=== PATIENT | male | born 1960 | race African-American/Black ===

== ENCOUNTER → 2017-03-24 | Outpatient (CLI) | payer MEDICARE, OTHER ==
[~2017-03-24] MED LIST: AMLODIPINE BESY10 MG PO; LORTAB 7.5-3251 EACH PO; PERCOCET 5/321 UDTAB PO; TRIAMTERENE-HC1 EAC1 PO; XARELTO10 MG PO
--- NOTE | ~2017-03-24 | EKG ---
PATIENT: FRANCI MALDONADO UNIT #: [id number] Ventricular Rate: 81 BPM Atrial Rate: 81 BPM P-R Interval: 154 ms QRS Duration: 84 ms Q-T Interval: 366 ms QTC Calculation(Bezet): 425 ms P [place]: 117 degrees Calculated R [place]: 17 degrees Calculated T [place]: 39 degrees Diagnosis Line: Normal sinus rhythm Diagnosis Line: Minimal voltage criteria for LVH, may be normal Diagnosis Line: variant Diagnosis Line: Early repolarization Diagnosis Line: Borderline ECG Diagnosis Line: No previous ECGs available Diagnosis Line: Confirmed by MISBAH MONROE MD ([id number]) on Diagnosis Line: 03/24/2017 3:21:27 PM INTERPRETING MD: FER MOTT
[2017-03-24 11:23] LABS: BILIRUBIN,TOTAL 0.5 mg/dL (0.2-2.0); BUN/CREATININE RATIO 6.66; CALCIUM SERUM 9.1 mg/dL (8.4-10.2); CREATININE SERUM 0.9 mg/dL (0.6-1.4); GLOM FILT RATE Estimated 108.7 mL/min (>60); POTASSIUM 4.2 mmol/L (3.5-5.1); PROTEIN TOTAL SERUM 7.6 g/dL (6.0-8.3)
== END | disposition home or self-care (01) ==
LOC: CAMB 09:52 → EDSTATUS 10:00 → CAMB 10:00
PROVIDERS: Orthopaedic Surgery
DX: Z01.818 Encounter for other preprocedural examination (principal); S82.201K Unspecified fracture of shaft of right tibia, subsequent encounter for closed fracture with nonunion; S82.401K Unspecified fracture of shaft of right fibula, subsequent encounter for closed fracture with nonunion; I51.7 Cardiomegaly; R94.31 Abnormal electrocardiogram [ECG] [EKG]
CPT/HCPCS: 36415; 80053; 93005

== ENCOUNTER 2017-04-07 13:26 | Inpatient (IN) | payer MEDICARE, OTHER ==
--- NOTE | ~2017-04-07 | CO ---
Unit #: [id number] #: [id number] Patient: FRANCI MALDONADO [id number] [address] [address] [id number] I MR#: [id number] NAME: FRANCI MALDONADO. ROOM: [facility] Age: 56 Sex: M Admission Date: 04/07/2017 : 1960 Attending Physician: Chevy Tejeda M.D. Primary Care Physician: Emma Sands M.D. Consultation Date: 04/08/2017 CONSULTATION REPORT REFERRING PHYSICIAN Dr. Maximiliano Tejeda REASON FOR CONSULT Alcohol abuse. HISTORY This pleasant 56-year-old male with hypertension, chronic right leg pain, was admitted to the orthopedic service yesterday for a right tib/fib surgery for right tib/fib malunion. The patient drinks 12 beers on a daily basis. We were asked to see for alcohol withdrawal. The patient apparently was sweaty and shaky earlier, and Ativan per [place] protocol was ordered. At this time the patient is more calm. Denies any symptoms except for some nausea and vomiting postop. Of note, his perioperative vital signs have been stable, and his estimated blood loss was 500 mL. PAST MEDICAL HISTORY 1. Alcohol abuse. The patient states that he drinks 12 beers on a daily basis. 2. Tobacco abuse. 3. Hypertension. 4. History of acute kidney injury which the patient states is related to penicillin. He states that he did require temporary dialysis. ALLERGIES Penicillin. HOME MEDICATIONS The patient states that he just takes Norvasc 10 mg daily and Lortab 7.5. Although Maxzide 37.5 mg is noted as a home medicine, the patient states that he does not take this medicine. FAMILY HISTORY Heart disease, hypertension and CVA. SOCIAL HISTORY The patient is living with a friend. He smokes one pack per day of tobacco, drinks 12 beers on a daily basis. Denies illicit drug use. REVIEW OF SYSTEMS Notable for tobacco abuse, alcohol abuse, hypertension, chronic right distal leg pain following injury last year. All other systems were reviewed and are otherwise negative. Unit #: [id number] #: [id number] Patient: FRANCI MALDONADO PHYSICAL EXAMINATION GENERAL APPEARANCE: Pleasant 56-year-old male, minimally confused at this point after receiving Phenergan. VITAL SIGNS: Temperature 98.9, pulse 96, O2 saturation 100%, blood pressure 137/87. HEENT: Eyes PERRLA. Extraocular muscles are intact. Pharynx is benign with poor dentition. NECK: Supple without adenopathy or thyromegaly. CHEST: Clear. CARDIAC: Normal S1 and S2 without murmur. ABDOMEN: Bowel sounds are present. No hepatosplenomegaly, tenderness or masses. EXTREMITIES: Splint noted distal right leg. Left leg without edema. Good pedal pulse. No ulceration. NEUROLOGIC EXAMINATION: The patient is minimally confused after receiving Phenergan. His cranial nerves are intact. He has equal strength throughout and is able to move all of the extremities. He is not tremulous at this time. DIAGNOSTIC STUDIES LABORATORY: 03/24/2017 - SMA-12 notable for an AST of 62, alkaline phos. 132. CARDIOVASCULAR: EKG on that day, according to the [employer], early repolarization, minimal voltage criteria for LVH. ASSESSMENT 1. Surgery for right tib/fib malunion: Estimated blood loss about 500 mL. Perioperative vital signs stable. 2. Alcohol abuse: Patient drinks a 12 pack of beer on a daily basis. Had some symptoms of withdrawal, initially now improved after Ativan per CIWA protocol. 3. Essential hypertension. PLANS 1. Continue Ativan per CIWA protocol and vitamins. Will discontinue other medications on the protocol such as Phenergan, Lomotil, etc. 2. Recheck labs in the morning. 3. P.r.n. Zofran. 4. Hold Maxzide. I am unsure if patient is actually taking this medicine. 5. Will follow with you. Thank you very much for this consult. ADDITIONAL JOB #: [id number] Dictated by... Gricelda Martinez M.D. AML/df TD: 04/09/2017 06:11 JOB #: [id number] Unit #: [id number] #: [id number] Patient: FRANCI MALDONADO CONSULTATION REPORT Page 1 of 1 X Gricelda Martinez MD CONSULTATION REPORT
--- NOTE | ~2017-04-07 | OR ---
Unit #: [id number] #: [id number] Patient: FRANCI MALDONADO [id number] [address] [place], [place] [address] [id number] I MR#: [id number] NAME: FRANCI MALDONADO. ROOM: [facility] Date of Procedure: 04/07/2017 Admission Date: 04/07/2017 Surgeon: Chevy Tejeda M.D. : 1960 Attending Physician: Chevy Tejeda M.D. Primary Care Physician: Emma Sands M.D. OPERATIVE REPORT PREOPERATIVE DIAGNOSIS Right distal tibial and fibular nonunions. POSTOPERATIVE DIAGNOSIS Right tibial and fibular malunions with healing and significant recurvatum. PROCEDURES PERFORMED 1. Right distal tibial shaft and fibular shaft realignment osteotomies (84799). 2. Right proximal tibial bone graft (82197). ASSISTANTS MD Mitra; MD Clarisa; and STEFFANY Villa. ANESTHESIA General and popliteal saphenous block. INDICATIONS FOR SURGERY The patient is a 56-year-old male, who jumped off a tractor about a year ago sustaining distal tibial and fibular fractures. He was initially treated in an external fixator and went on to develop a nonunion with marked displacement of both fractures. The patient is a smoker, which has most likely contributed to his nonunion. The patient failed to respond to bracing and he is therefore to undergo realignment osteotomies. DESCRIPTION OF PROCEDURE The patient was taken to the operating room following the right popliteal saphenous block. He was placed in supine position. General anesthetic was induced. The right leg was identified as the correct operative location during the time-out procedure. The IV antibiotic protocol was followed. The right leg was then prepped and draped in usual sterile fashion. The leg was exsanguinated and the thigh tourniquet inflated to 300 mmHg. A lateral longitudinal incision measuring 8 cm was made over the fibular shaft. Subcutaneous tissue was divided. The fibula was exposed with subperiosteal dissection and the fibula was actually found to be healed in about 20 degrees of recurvatum. An anteromedial longitudinal incision was then made over the distal tibia measuring about 10 cm. Subcutaneous tissue was divided. There was marked scarring around the anterior tibial tendon. Dissection proceeded medial to the anterior tibial tendon and the distal tibial shaft was exposed with subperiosteal dissection. A discrete nonunion was not identified, but Unit #: [id number] #: [id number] Patient: FRANCI MALDONADO there was marked recurvatum of the tibia. Under C-arm fluoroscopic control, a 0.062-inch diameter smooth K-wire was drilled from anterior proximal to distal posterior in line with the fracture malunion/nonunion. An oscillating saw was then used to cut next to the pin, which acted as a guide for the saw. The osteotomy was completed with a power osteotome posteriorly under C-arm fluoroscopic control. There was significant difficulty mobilizing the distal fragment of the tibia, therefore an additional posteromedial incision was made over the tibia measuring about 8 cm. Dissection proceeded anterior to the posterior tibial tendon, neurovascular bundle, and other musculature and the posterior aspect of the tibia was exposed with subperiosteal dissection. This then allowed removal of some bone from the posterior tibia, which was blocking reduction. We were then able to achieve a near-anatomic reduction with a large bone-holding clamp. The anterior opening osteotomy of the distal tibia was bone grafted with autogenous graft taken from the proximal tibia. A 5 cm curvilinear incision was made over the proximal lateral tibia. Subcutaneous tissue was divided. The extensor fascia was opened. The lateral tibial cortex was exposed subperiosteally and a 1 x 2 cm cortical window was made with the power osteotome. A large amount of cancellous bone graft was harvested with the curved curette. Two collagen sponges soaked in Infuse bone morphogenic protein were then packed into the osteotomy site of the tibia. The tibial osteotomy was then packed with autogenous bone graft, which was taken from the proximal tibia. Additional local graft from the osteotomy site that had been removed to allow reduction was also packed into this osteotomy. A DePuy distal tibial anterior [place] plate was then aligned with the tibia anteriorly and fixated with multiple 3.5 mm diameter cortical screws proximally, and two 4.0 mm diameter cannulated screws placed distally. A 4.0 cannulated cancellous lag screw was then placed through the plate across the osteotomy site to achieve interfragmentary compression. The fibula was then grafted with a bone graft taken from the proximal tibia. A 7-hole one-third tubular plate from DePuy was then applied laterally and fixated with multiple 3.5 mm diameter cortical screws. Excellent fixation was achieved. Intraoperative C-arm fluoroscopy documented satisfactory near anatomic reduction. The proximal tibial donor site was irrigated and then packed with allograft cancellous bone chips and the cortical window was replaced. The deep tissues were closed with 2-0 Vicryl, subcutaneous tissue was closed with 3-0 Vicryl, and the skin was closed with interrupted 3-0 nylon horizontal mattress sutures. Xeroform gauze, dressing, sponges, Webril, and a posterior fiberglass splint were applied. The patient was then transported to the recovery room in stable condition. ESTIMATED BLOOD LOSS 200 mL. COMPLICATIONS None. SPECIMENS None. TOURNIQUET TIME Unit #: [id number] #: [id number] Patient: FRANCI MALDONADO Approximately 2 hours. Dictated by.Dominguez Robles/jose TD: 04/08/2017 16:23 JOB #: [id number] OPERATIVE REPORT Page 1 of 1 X Christina Tejeda MD X PROCEDURE OPERATIVE NOTE
--- NOTE | ~2017-04-07 | DS ---
Unit #: [id number] #: [id number] Patient: FRANCI MALDONADO [id number] [address] [place], [place] [address] [id number] I MR#: [id number] NAME: FRANCI MALDONADO. ROOM: [facility] Age: 56 Sex: M Admission Date: 04/07/2017 : 1960 Discharge Date: 04/09/2017 Attending Physician: Chevy Tejeda M.D. Primary Care Physician: Emma Sands M.D. DISCHARGE SUMMARY CHIEF COMPLAINT Right leg pain. HISTORY OF PRESENT ILLNESS The patient is a 56-year-old male, alcoholic, smoker, who sustained distal tibial and fibular fractures a year ago when he jumped off a tractor. He was initially treated with external fixation. He went on to develop a significant recurvatum deformity of the distal tibia and fibula with suspected nonunion. He was referred to [facility] for further evaluation and treatment. We are, therefore, going to proceed with internal fixation and reduction of both fractures using plates. HOSPITAL COURSE The patient was taken to the operating room on the date of admission, where he underwent osteotomies through old malunions and anterior opening wedge osteotomy of the distal tibia and posterior closing wedge osteotomy of the distal fibula. We used proximal tibial graft and infused bone morphogenic protein. He had a stable postoperative course. Precautions were taken for alcohol withdrawal. Pain was controlled with Percocet and IV morphine. Dressing was changed on the second postoperative day. He was seen by physical therapy on a daily basis and instructed on how to remain nonweightbearing on the affected side. DVT prophylaxis was achieved with Xarelto. He was discharged in stable condition on the second postoperative day. FINAL DIAGNOSES 1. Right distal tibial and fibular malunions. OPERATIONS PERFORMED Right distal tibial and fibular osteotomy on 04/07/2017. DISPOSITION The patient is discharged home. DISCHARGE INSTRUCTIONS He will remain strictly nonweightbearing for three months. He will keep the dressing clean, dry and intact. Will continue ice and elevation. DISCHARGE MEDICATIONS 1. Home medications. 2. Percocet 5/325 mg 1-2 p.o. q.4-6 h. p.r.n. pain. 3. Xarelto 10 mg p.o. daily for a total of 2 weeks postoperatively. Unit #: [id number] #: [id number] Patient: FRANCI MALDONADO FOLLOWUP Follow up in my office in 10 days for dressing change, possible suture removal and application of a cast. Dictated by..Brenda Tejeda M.D. RTYazmin/gz TD: 04/09/2017 07:59 JOB #: [id number] CC: Chevy Tejeda M.D. DISCHARGE SUMMARY Page 1 of 1 X Christina Tejeda MD X DISCHARGE SUMMARY
--- NOTE | ~2017-04-07 | HP ---
Unit #: [id number] #: [id number] Patient: FRANCI MALDONADO [id number] [address] [address] [id number] O MR#: [id number] NAME: FRANCI MALDONADO. ROOM: Age: Sex: M Admission Date: 04/07/2017 : 1960 Attending Physician: Chevy Tejeda M.D. Primary Care Physician: Emma Sands M.D. HISTORY AND PHYSICAL DATE OF ANTICIPATED ADMISSION/PROCEDURE April 07, 2017 CHIEF COMPLAINT Right leg pain. HISTORY OF PRESENT ILLNESS The patient is a 56-year-old male who sustained right distal tibial and fibular fractures one year ago when he jumped off a tractor. He subsequently went on to develop a distal tibial nonunion with 25 degrees of recurvatum of the distal tibia. The patient is therefore admitted for open reduction and internal fixation of this unstable nonunion. Patient was advised that stopping smoking will be johnson to his recovery from this injury. PAST MEDICAL HISTORY 1. Tobacco abuse. 2. Hypertension. 3. Hypercholesterolemia. PAST SURGICAL HISTORY 1. Right kidney removed. 2. Carotid endarterectomy. HOME MEDICATIONS 1. Amlodipine. 2. Triamterene and hydrochlorothiazide. ALLERGIES Penicillin. SOCIAL HISTORY The patient drinks six alcoholic drinks a week. He smokes one pack per day. He denies illicit drug use. FAMILY HISTORY Heart disease, hypertension, and stroke. REVIEW OF SYSTEMS Otherwise unremarkable except as noted in History of Present Illness. PHYSICAL EXAMINATION VITAL SIGNS: Height 5 feet 10, weight 157 pounds. BMI is 22.5. GENERAL: This is a thin male in no acute distress. Unit #: [id number] #: [id number] Patient: FRANCI MALDONADO HEENT: Pharynx is clear. NECK: Supple without masses. HEART: Regular sinus rhythm without murmurs or gallops. LUNGS: Clear. ABDOMEN: Soft and nontender without masses or organomegaly. EXTREMITIES: Evaluation of the right foot shows a normal arch. The hindfoot is neutral. Right ankle dorsiflexion is present to zero degrees and plantar flexion 20 degrees. Subtalar motion is limited. On weightbearing, the patient has 25 degrees of recurvatum of the distal tibia. Dorsalis pedis and posterior tibial pulses are present. Sensation is normal. Motor exam is intact. DIAGNOSTIC STUDIES IMAGING: Standing x-rays of the right ankle show the ankle joint to be intact. There is anterior translation of the distal tibia 2 cm with 25 degrees of recurvatum of the distal tibia and fibula. There is no coronal malalignment seen on AP views. There is some subperiosteal reaction around the tibia and fibula. 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 PLAN The patient will undergo right distal tibial and fibular nonunion repair using an anterior plate and lateral fibular plate. We will use proximal tibial bone graft, infused bone morphogenic protein, and interfragmentary compression if possible. This procedure was described along with the risks of bleeding, infection, nerve damage, need for further surgery in the future, nonunion, malunion, prolonged recovery time, wound healing problems, deep venous thrombosis, pulmonary embolism, and anesthetic complications. Again, the importance of not smoking postoperatively was reiterated to the patient. Dictated by Dominguez Kovacs/angel TD: 04/06/2017 18:43 JOB #: [id number] HISTORY AND PHYSICAL Page 1 of 1 X Christina Tejeda MD X HISTORY AND PHYSICAL
[~2017-04-07 13:26] MED LIST changes: -AMLODIPINE BESY10 MG PO; -PERCOCET 5/321 UDTAB PO; -TRIAMTERENE-HC1 EAC1 PO; -XARELTO10 MG PO
[2017-04-08 04:07] LABS: BASOPHIL% 0.6 % (0-2.5); EOSINOPHIL% 0.4 % (0.0-7.0); HEMATOCRIT 31.7 % (38.0-50.0); HEMOGLOBIN 10.4 gm/dL (13.0-16.0); LYMPHOCYTE# 0.6 X10e3 (1.0-3.5); LYMPHOCYTE% 9.1 % (17.0-45.0); MEAN CELL VOLUME 93.9 FL (83-96); MEAN CORPUSCULAR HEMOGLOBIN 30.8 PG (28-34); MEAN CORPUSCULAR HGB CONC 32.8 g/dL (30-36); MEAN PLATELET VOLUME 8.5 FL (6.5-11.5); MONOCYTE# 0.7 X10e3 (0-1.0); MONOCYTE% 9.8 % (3.0-12.0); NEUTROPHIL# 5.5 X10e3 (1.5-7.1); NEUTROPHIL% 80.1 % (40-75); PLATELET COUNT 134 X10e3 (140-420); RED BLOOD COUNT 3.37 X10e (3.90-5.60); RED CELL DISTRIBUTION WIDTH 15.4 % (11.0-15.5); WHITE BLOOD COUNT 6.8 X10e3 (4.0-10.5)
[2017-04-08 04:11] LABS: DIFF IND NO
[2017-04-08 04:29] LABS: BUN/CREATININE RATIO 9.16; CALCIUM SERUM 8.3 mg/dL (8.4-10.2); CREATININE SERUM 1.2 mg/dL (0.6-1.4); GLOM FILT RATE Estimated 76.8 mL/min (>60); POTASSIUM 3.8 mmol/L (3.5-5.1)
[2017-04-09 02:19] LABS: BASOPHIL% 0.2 % (0-2.5); EOSINOPHIL# 0.1 X10e3 (0-0.7); EOSINOPHIL% 0.6 % (0.0-7.0); HEMATOCRIT 25.1 % (38.0-50.0); LYMPHOCYTE# 0.6 X10e3 (1.0-3.5); LYMPHOCYTE% 5.9 % (17.0-45.0); MEAN CELL VOLUME 94.2 FL (83-96); MEAN CORPUSCULAR HEMOGLOBIN 30.6 PG (28-34); MEAN CORPUSCULAR HGB CONC 32.5 g/dL (30-36); MEAN PLATELET VOLUME 7.9 FL (6.5-11.5); MONOCYTE# 1.6 X10e3 (0-1.0); MONOCYTE% 15.6 % (3.0-12.0); NEUTROPHIL# 7.9 X10e3 (1.5-7.1); NEUTROPHIL% 77.7 % (40-75); PLATELET COUNT 104 X10e3 (140-420); RED BLOOD COUNT 2.67 X10e (3.90-5.60); RED CELL DISTRIBUTION WIDTH 14.9 % (11.0-15.5); WHITE BLOOD COUNT 10.1 X10e3 (4.0-10.5)
[2017-04-09 02:31] LABS: DIFF IND NO; HEMOGLOBIN 8.2 gm/dL (13.0-16.0)
[2017-04-09 03:04] LABS: BUN/CREATININE RATIO 9.09; CALCIUM SERUM 8.1 mg/dL (8.4-10.2); CREATININE SERUM 1.1 mg/dL (0.6-1.4); GLOM FILT RATE Estimated 85.3 mL/min (>60); MAGNESIUM 1.6 mg/dL (1.6-3.0); PHOSPHOROUS 3.7 mg/dL (2.5-4.6)
[2017-04-09 12:51] LABS: HEMATOCRIT 24.9 % (38.0-50.0); HEMOGLOBIN 8.2 gm/dL (13.0-16.0)
[2017-04-09] MEDS ORDERED: XARELTO10 MG PO (14:43)
[2017-06-23] MEDS ORDERED: AMLODIPINE BESY10 MG PO (10:31)
[2017-06-23] MEDS ORDERED: TRIAMTERENE-HC1 EAC1 PO (10:31)
[2017-06-23] MEDS ORDERED: PERCOCET 5/321 UDTAB PO (14:44)
== END 2017-04-09 17:25 | disposition home or self-care (01) | DRG 494 ==
LOC: CSUR 13:26 → C4C 16:00 → CPACUOF 16:00 → CSUR 16:00 → CPACUOF 20:40 → C4C 23:21 → CPACUOF 23:21 → C4C 04-09 17:25
PROVIDERS: Internal Medicine; Nurse Practitioner; Orthopaedic Surgery
PROC: 0QR Lower Bones, Replacement (ICD-10-PCS; 2017-04-07)
PROC: 0QBG0ZZ Excision of Right Tibia, Open Approach (ICD-10-PCS; 2017-04-07)
PROC: 0QSG04Z Reposition Right Tibia with Internal Fixation Device, Open Approach (ICD-10-PCS; principal; 2017-04-07 16:30)
DX: S82.831A Other fracture of upper and lower end of right fibula, initial encounter for closed fracture (principal); D69.6 Thrombocytopenia, unspecified; S82.201A Unspecified fracture of shaft of right tibia, initial encounter for closed fracture; F17.210 Nicotine dependence, cigarettes, uncomplicated; I10 Essential (primary) hypertension; E78.00 Pure hypercholesterolemia, unspecified; Z88.0 Allergy status to penicillin; D64.9 Anemia, unspecified; R73.9 Hyperglycemia, unspecified; F10.10 Alcohol abuse, uncomplicated; R00.0 Tachycardia, unspecified; E83.42 Hypomagnesemia; L29.9 Pruritus, unspecified; Z71.6 Tobacco abuse counseling
CPT/HCPCS: 80048; 83735; 84100; 85014; 85018; 85025; 97116; 97162; 97530; C1713; G8978-GP; G8979-GP; G8980-GP; J1170; J2250; J2270; J2550; J2795; J3010; J3370; J3411; J3475; J7042

== ENCOUNTER 2017-05-07 10:57 | Inpatient (IN) | payer MEDICARE, OTHER ==
[~2017-05-07] VITALS: Ht 175.3 cm; Wt 65.6 kg
--- NOTE | ~2017-05-07 | CO ---
Unit #: [id number] #: [id number] Patient: FRANCI MALDONADO [id number] [address] [address] [id number] I MR#: [id number] NAME: FRANCI MALDONADO. ROOM: 467 Age: 56 Sex: M Admission Date: 05/07/2017 : 1960 Attending Physician: Chevy Tejeda M.D. Requesting Physician: Chevy Tejeda M.D. Consultation Date: 05/07/2017 CONSULTATION REPORT REASON FOR CONSULT Medical management and alcohol abuse. HISTORY OF PRESENT ILLNESS This pleasant 56-year-old male with hypertension was admitted to the orthopedic service today for a right distal wound dehiscence. The patient was previously admitted April 07, 2017, for right distal tibial malunion requiring surgery. Since his last admission, he has developed dehiscence of the wound. Today, he underwent I and D of the wound dehiscence with wound V.A.C. placement. Antibiotics are ordered, and a consult was also placed to Infectious Disease. The patient states that he drinks six to eight 12-ounce beers on a daily basis; last drink was yesterday morning. He is feeling perhaps very mildly tremulous. During his last hospitalization, he was placed on Ativan per CIWA protocol but did not have any complications in terms of his alcohol withdrawal during that hospitalization. With today's surgery, his perioperative vital signs were stable, and his estimated blood loss was 20 mL. PAST MEDICAL HISTORY 1. Alcohol abuse, six to eight 12-ounce beers on a daily basis. 2. Essential hypertension. 3. History of acute kidney injury which the patient states was related to penicillin in the past requiring temporary dialysis. 4. Partial right nephrectomy with benign findings. 5. Right tibia-fibula fracture initially treated with external fixation. Patient was admitted April 07, 2017, for right distal tibial and fibular nonunions requiring right distal tibial shaft and fibular shaft realignment ostomies with right proximal tibial bone graft. ALLERGIES Penicillin. HOME MEDICATIONS 1. Maxzide 37.5/25 mg daily. 2. Norvasc 10 mg q.a.m. 3. Xarelto 10 mg daily. 4. Percocet 6/325 mg 1-2 tablets q.4-6 hours as needed. FAMILY HISTORY Heart disease, hypertension, and CVA. SOCIAL HISTORY Unit #: [id number] #: [id number] Patient: FRANCI MALDONADO The patient lives with a friend. He smokes between one-half to one pack per day of tobacco. He drinks six to eight 12-ounce beers on a daily basis and denies illicit drug use. REVIEW OF SYSTEMS Notable for right leg pain, alcohol abuse, tobacco abuse, hypertension, and above-mentioned surgeries. All other systems were reviewed and are otherwise negative. PHYSICAL EXAMINATION GENERAL: A pleasant, thin, 56-year-old male currently in no acute distress. VITAL SIGNS: Blood pressure today was as high as 170/86, heart rate 67, temperature 97.9, and O2 saturation 100%. HEENT: Eyes PERRLA. Extraocular muscles are intact. Pharynx is benign with poor dentition. NECK: Supple without adenopathy or thyromegaly. CHEST: A few crackles at the bases. CARDIAC: Normal S1 and S2 without definite murmur. ABDOMEN: Bowel sounds are present. No hepatosplenomegaly, tenderness, or masses. EXTREMITIES: Patient has an Srinivasan wrap right distal lower extremity with wound V.A.C. attached. Left leg with somewhat diminished pedal pulses. No edema. NEUROLOGIC: Patient is awake, alert, and oriented. Cranial nerves are intact. He has equal strength throughout. He is minimally tremulous. DIAGNOSTIC STUDIES LABORATORY TODAY: Hematocrit 34.1 with normal white count and platelet count. Sedimentation rate 95. Coags normal. SMA-7 with sodium 133 and CO2 of 19. C-reactive protein normal. ASSESSMENT 1. Incision and debridement of a right postoperative distal right leg wound dehiscence. The patient now has a wound V.A.C. in place. Plans are for antibiotics and Infectious Disease consultation. 2. Alcohol abuse. The patient states that he drinks six to eight 12-ounce beers on a daily basis. 3. Essential hypertension. 4. Tobacco abuse. PLANS 1. Low-dose Librium. Ativan per CIWA protocol and will give vitamins. 2. Recheck labs in the morning. 3. Hold Maxzide if blood pressure starts to run on the low side. Thank you very much for this consult. Will follow with you. Dictated by... Gricelda Martinez M.D. AML/am TD: 05/07/2017 22:02 JOB #: [id number] Unit #: [id number] #: [id number] Patient: FRANCI MALDONADO CONSULTATION REPORT Page 1 of 1 X Gricelda Martinez MD CONSULTATION REPORT
--- NOTE | ~2017-05-07 | DS ---
Unit #: [id number] #: [id number] Patient: FRANCI MALDONADO [id number] [address] [address] [id number] I MR#: [id number] NAME: FRANCI MALDONADO ROOM: 46 Age: 56 Sex: M Admission Date: 05/07/2017 : 1960 Discharge Date: 05/12/2017 Attending Physician: Chevy Tejeda M.D. Referring Physician: Chevy Tejeda M.D. Primary Care Physician: Generic Doctor Not In System DISCHARGE SUMMARY CHIEF COMPLAINT Right leg infection. HISTORY OF PRESENT ILLNESS The patient is a 56-year-old male who underwent right tibial shaft and fibular osteotomies on April 07, 2015 for a distal tibial malunion. He now presents with dehiscence of the anterior and medial wounds. He denies fevers or chills. He is admitted for wound debridement, IV antibiotics and placement of a wound VAC. HOSPITAL COURSE The patient was taken to the operating room on the date of admission where he underwent debridement of his right leg wound with placement of a wound VAC. Aerobic and anaerobic cultures were taken at the time of surgery and these ultimately grew Klebsiella oxytoca and Proteus mirabilis. He was placed on IV antibiotics and was seen by the infectious disease service. Eventually the antibiotics which began with vancomycin were switched to aztreonam for treatment of his cultured bacteria. He had a stable postoperative course. His wound was checked on 05/11/2017 and was found to be much improved. His medial wound was almost granulated in completely and the anterior wound had granulated in dramatically but he still had exposed hardware. After consultation with the infectious disease physician, Dr. Sams, we decided to keep him on outpatient antibiotics for a total of four additional weeks with plan to change his wound VAC every three days. He was ready for discharge on the fourth postop day. FINAL DIAGNOSES 1. Right leg postoperative wound dehiscence. 2. Five weeks status post right distal tibial and fibular osteotomies. DISPOSITION AND RECOMMENDATIONS 1. The patient is discharged to rehab. He will continue nonweightbearing on his right leg for a total of six more weeks. He will continue elevation of the leg. 2. His right leg wound VAC should be changed and applied to both his lateral and medial wounds every three days. DISCHARGE MEDICATIONS Are as follows: 1. Amlodipine 10 mg p.o. q.a.m. 2. Aspirin 325 mg p.o. b.i.d. 3. Percocet 5/325 one or two p.o. q.6 h. p.r.n. pain. 4. Triamterene and hydrochlorothiazide 37.5/25 mg one cap p.o. q.a.m. Unit #: [id number] #: [id number] Patient: FRANCI MALDONADO 5. Aztreonam 2 g IV through a PICC line q.8 h. 6. Feosol one tab p.o. daily. FOLLOWUP Follow up in the office of Dr. Tejeda in approximately 7 to 10 days. Call [phone] to make the appointment. At that time will check his wound and make a decision regarding continuation of wound VAC. Dictated byDominguez Marino/agusto TD: 05/12/2017 16:39 JOB #: [id number] DISCHARGE SUMMARY Page 1 of 1 X hCristina Tejeda MD X DISCHARGE SUMMARY
--- NOTE | ~2017-05-07 | XA166 ---
[facility] A Service of [facility] RADIOLOGY TEXT RESULTS PATIENT: FRANCI MALDONADO LOCATION: [facility] 467-01 : 56 UNIT #: [id number] AGE: [address]: Christina Tejeda MD SEX: M ORDER DR: [id number] [facility] [place], [place] [address] [id number] I MR#: [id number] Acc #: [id number] NAME: FRANCI MALDONADO : 1960 SEX: M STUDY DATE/TIME: 05/11/2017 11:00 UNIT: [facility] ROOM: [facility] STUDY DESCRIPTION: XA PICC Line Placement WO Port Attending Physician: Chevy Tejeda M.D. Referring Physician: Chevy Tejeda M.D. Ordering Physician: Chevy Tejeda M.D. Primary Care Physician: Janel Doctor Not In System MEDICAL IMAGING REPORT This report is preliminary unless electronic signature is present INDICATION 56-year-old male who needs IV access for antibiotics. PRE-PROCEDURE The procedure was explained to the patient and/or patient product sales representative including risks, benefits, potential complications and potential for alternative forms of treatment. Informed consent was obtained, and prior to initiating the procedure a formal timeout procedure was performed. PROCEDURE Using full standard sterile barrier technique, including caps, gowns, gloves, masks, as well as sterile skin preparation and standard sterile draping, the right arm was prepped and draped in the usual fashion, and real-time sterile ultrasound guidance was used to localize an arm vein and to confirm vessel patency. A hard copy ultrasound image was recorded. After local anesthesia with 1% Xylocaine, the vein was punctured using real-time sterile ultrasound guidance, and an 0.018 guidewire was advanced into the superior vena cava, using fluoroscopic guidance. A 4 [place] 41.0 cm single-lumen PICC was then measured and deployed with the tip positioned in the superior vena cava. The position of the line was documented with a radiographic image. The line was secured in place with an adhesive dressing and an antibiotic patch was applied. Total fluoro time was 0.2 minutes. The reference air kerma is 3 mGy. IMPRESSION Successful right arm PICC line placement. Dictated by... Sher Drake M.D. THIS IS AN ELECTRONICALLY VERIFIED REPORT Sher Drake M.D. at 05/13/2017 5:01 PM [facility] A Service of [facility] RADIOLOGY TEXT RESULTS PATIENT: FRANCI MALDONADO LOCATION: [facility] 467-01 : 56 UNIT #: [id number] AGE: [address]: Christina Tejeda MD SEX: M ORDER DR: Osbaldo TD: 05/12/2017 10:57 JOB #: [id number] MEDICAL IMAGING REPORT Page 1 of 1 COPY
--- NOTE | ~2017-05-07 | CO ---
Unit #: [id number] #: [id number] Patient: FRANCI MALDONADO [id number] [address] [address] [id number] I MR#: [id number] NAME: FRANCI MALDONADO. ROOM: 46 Age: 56 Sex: M Admission Date: 05/07/2017 : 1960 Attending Physician: Chevy Tejeda M.D. Primary Care Physician: Janel Doctor Not In System Consultation Date: 05/08/2017 CONSULTATION REPORT The patient was admitted to Dr. Tejeda. REASON FOR CONSULTATION Antibiotic management. HISTORY OF PRESENT ILLNESS This is a 56-year-old male who has a history of recent right tibial shaft, fibular osteotomies secondary to malunion approximately four weeks ago. Patient went for his followup visit and was found to have dehiscence of wound, and he was admitted to the hospital. Patient was taken to the operating room and a wound VAC was placed after it was debrided and cleaned out. The patient's OR cultures are showing Gram stain gram-positive cocci in pairs and ID was asked to evaluate. The patient is currently on vancomycin. The patient does have a history of alcohol abuse and also penicillin allergy. PAST MEDICAL HISTORY 1. Alcohol abuse, six to eight beers on a daily basis. 2. Hypertension. 3. Acute kidney injury, which he reports is related to penicillin and caused dialysis. However, he is not currently on dialysis. 4. Partial right nephrectomy. 5. Right tibia/fibula fracture, treated with external fixation, admitted now nonunion status post repair four weeks ago. ALLERGIES Penicillin causing kidney injury. MEDICATIONS The patient is currently on vancomycin. For other medications, please refer to patient's MAR. SOCIAL HISTORY The patient has positive tobacco, positive alcohol but no IV drug use. REVIEW OF SYSTEMS Patient denies any fever or chills, shortness of breath, nausea, vomiting, diarrhea, chest pain. He does report pain in his right lower extremity. PHYSICAL EXAMINATION VITAL SIGNS: Temperature is 97.6, pulse 77, blood pressure 161/96, and respiratory rate 18. GENERAL: This is a no apparent distress male who is resting in the bed comfortably. Unit #: [id number] #: [id number] Patient: MALDONADO,FRANCI T HEENT: His pupils are equal. NECK: His neck is supple. CARDIOVASCULAR: S1, S2. Regular rate and rhythm. PULMONARY: Clear to auscultation bilaterally with no wheezes or rhonchi noted. ABDOMEN: Positive bowel sounds. Soft, nontender. EXTREMITIES: Right lower extremity is in a wound VAC. He is able to move his toes up and down. DIAGNOSTIC STUDIES LABORATORY: BUN 12, creatinine 0.9, sodium 128, potassium 4.2, chloride 99, CO2 of 25. Bilirubin not checked this admission. CRP is 0.7. White blood cell count of 6.9, hemoglobin 8.8, hematocrit 26.9, platelets 303,000. Sed rate 95. MICROBIOLOGY: Microbiology data shows Gram stain gram-positive cocci and now is also showing gram-negative rods x2. IMAGING: There is no diagnostic imaging at this time. IMPRESSION This is a 56-year-old male with history of fracture and internal fixation and recent right tibial shaft/fibular osteotomies secondary to malunion four weeks ago. Patient now with dehiscence of wound. Patient is not diabetic and at this time appears to be showing some polymicrobial infection; however, ID of the gram-negative rods have not been identified. At this time, would recommend to follow up on the operating room report as well as operating room cultures. With patient's history of penicillin allergy more so causing some renal insufficiency, will give aztreonam until more is known. Will also continue vancomycin. Once the extent of the infection is known as the patient does report he does have hardware in place, it will be determined the length of therapy. Thank you for allowing us to participate in the care of this patient. Further recommendations to follow pending patient's clinical course. Dictated by... Heather Mueller A.P.R.N. for Dominguez Liu/clarissa TD: 05/08/2017 09:31 JOB #: [id number] CONSULTATION REPORT Page 1 of 1 X X CONSULTATION REPORT
--- NOTE | ~2017-05-07 | OR ---
Unit #: [id number] #: [id number] Patient: FRANCI MALDONADO [id number] [place], [place] [address] [id number] I MR#: [id number] NAME: FRANCI MALDONADO. ROOM: 467 Date of Procedure: 05/07/2017 Admission Date: 05/07/2017 Surgeon: Chevy Tejeda M.D. : 1960 Attending Physician: Chevy Tejeda M.D. Referring Physician: Chevy Tejeda M.D. OPERATIVE REPORT PREOPERATIVE DIAGNOSES Right leg postoperative wound infection and dehiscence. POSTOPERATIVE DIAGNOSES Right leg postoperative wound infection and dehiscence. PROCEDURE PERFORMED 1. Right leg wound postoperative wound dehiscence debridement and irrigation (70320). 2. Application wound vacuum assisted closure device (wound VAC) for 90 cm2 wound (73533). PRECISION MILLWRIGHT Dell Maya Vessell. ANESTHESIA General. 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 The patient is a smoker and has experienced now a wound dehiscence both of his anterior wound and his medial wound. He is therefore, to undergo debridement with application of wound VAC. DESCRIPTION OF PROCEDURE The patient was taken to the operating room and placed in a supine position and general anesthetic was induced. The right leg was identified as the correct operative extremity during the time-out procedure. The IV antibiotic protocol was not followed, because we want to obtain cultures before institution of IV antibiotics. The right leg was then prepped and draped in the usual sterile fashion. A tourniquet was not utilized. The wound edges were sharply debrided removing all necrotic appearing tissue. There was exposed anterior tibial tendon in the wound and this was sharply debrided down to viable appearing tissue. There was a small area of the plate being exposed. A rongeur was used to remove all fibrinous and infected and necrotic appearing material. The anterior wound measured 8 x 9 cm. There was an additional medial wound measuring 3 x 6 cm and this was likewise debrided sharply with scissors removing all and infected appearing material. There was no exposed hardware in Unit #: [id number] #: [id number] Patient: FRANCI MALDONADO this wound. Aerobic and anaerobic cultures were taken from the anterior wound. A wound pulse lavage device was then utilized to lavage the wounds with 3 L of pulse saline. The silver impregnated wound VAC sponge was then cut to the dimensions of the 8 x 9 cm and 3 x 6 cm wounds. A small bridge was placed between the 2 wounds and the adhesive was applied. The suction device was then applied through a small hole in the occlusive dressing and this was attached to the suction and found to afford affective suction without leaking. Additional Kerlix and Srinivasan wraps were then applied. The patient was then transported to the recovery room in stable condition. ESTIMATED BLOOD LOSS Minimal. COMPLICATIONS None. SPECIMENS Right leg aerobic and anaerobic cultures. TOURNIQUET TIME Zero. Dictated by.Dominguez Robles/jose TD: 05/08/2017 04:17 JOB #: [id number] OPERATIVE REPORT Page 1 of 1 X Christina Tejeda MD X PROCEDURE OPERATIVE NOTE
--- NOTE | ~2017-05-07 | HP ---
Unit #: [id number] #: [id number] Patient: FRANCI MALDONADO 004367 [address] [address] [id number] MR#: [id number] NAME: FRANCI MALDONADO. ROOM: 467 Age: Sex: M Admission Date: 05/07/2017 : 1960 Attending Physician: Chevy Tejeda M.D. Referring Physician: Chevy Tejeda M.D. HISTORY AND PHYSICAL CHIEF COMPLAINT Right leg infection. HISTORY OF PRESENT ILLNESS This 56-year-old male underwent right tibial shaft and fibular osteotomies for a distal tibial malunion. He now presents with dehiscence of his anterior and lateral wounds. He denies fevers or chills. He is admitted for wound debridement and application of wound VAC with IV antibiotics. PAST MEDICAL HISTORY 1. Tobacco abuse. 2. Hypertension. 3. Hypercholesterolemia. 4. Cerebrovascular disease. PAST SURGICAL HISTORY 1. Right nephrectomy. 2. Carotid endarterectomy. 3. Right tibial and fibular osteotomies. SOCIAL HISTORY The patient lives with his girlfriend. He drinks six alcoholic drinks a week. There is a questionable history of alcohol abuse. He smokes one pack per day. FAMILY HISTORY Heart disease, hypertension, stroke. ALLERGIES Penicillin. HOME MEDICATIONS 1. Amlodipine. 2. Triamterene. 3. Hydrochlorothiazide. REVIEW OF SYSTEMS Unremarkable for fevers or chills. PHYSICAL EXAMINATION GENERAL: This is a thin male in no acute distress. VITALS: Height 5'10", weight 157 pounds, BMI 22. HEENT: Pharynx is clear. NECK: Supple without masses. Unit #: [id number] #: [id number] Patient: FRANCI MALDONADO LUNGS: Clear. HEART: Regular sinus rhythm without murmurs or gallops. ABDOMEN: Soft and nontender without masses or organomegaly. EXTREMITIES: Evaluation of the right leg demonstrates dehiscence of his anterior wound. There is an 8 cm diameter wound with exposed anterior tibial tendon and necrosis of the skin. His medial wound is also open 4 cm x 2 cm. There is no exposed bone, tendon or joint. The lateral wound is healed. ASSESSMENT 1. Postoperative right leg wound dehiscence. 2. Four weeks status post right tibial and fibular osteotomies. 3. Tobacco abuse. 4. History of cerebrovascular disease and suspected underlying peripheral vascular disease. PLAN 1. We will debride his wounds today and place a wound VAC. 2. Will obtain cultures and place him on appropriate IV antibiotics. 3. Continue nonweightbearing. Dictated by Dominguez Kovacs/aixa TD: 05/07/2017 09:57 JOB #: [id number] HISTORY AND PHYSICAL Page 1 of 1 X Christina Tejeda MD X HISTORY AND PHYSICAL
[~2017-05-07 10:57] MED LIST changes: +XARELTO10 MG PO
[2017-05-07 12:04] LABS: BASOPHIL% 0.6 % (0-2.5); EOSINOPHIL% 0.4 % (0.0-7.0); HEMATOCRIT 34.1 % (38.0-50.0); HEMOGLOBIN 10.8 gm/dL (13.0-16.0); LYMPHOCYTE# 0.7 X10e3 (1.0-3.5); LYMPHOCYTE% 11.5 % (17.0-45.0); MEAN CELL VOLUME 89.7 FL (83-96); MEAN CORPUSCULAR HEMOGLOBIN 28.5 PG (28-34); MEAN CORPUSCULAR HGB CONC 31.8 g/dL (30-36); MEAN PLATELET VOLUME 6.9 FL (6.5-11.5); MONOCYTE# 0.8 X10e3 (0-1.0); NEUTROPHIL# 4.3 X10e3 (1.5-7.1); NEUTROPHIL% 74.5 % (40-75); PLATELET COUNT 335 X10e3 (140-420); WHITE BLOOD COUNT 5.8 X10e3 (4.0-10.5)
[2017-05-07 12:07] LABS: DIFF IND NO
[2017-05-07 12:15] LABS: PROTHROMBIN TIME (PATIENT) 10.7 SECONDS (10.0-11.7)
[2017-05-07 14:58] LABS: CALCIUM SERUM 9.3 mg/dL (8.4-10.2); GLOM FILT RATE Estimated 95.7 mL/min (>60); POTASSIUM 4.3 mmol/L (3.5-5.1)
[2017-05-08 02:38] LABS: BASOPHIL% 0.5 % (0-2.5); EOSINOPHIL# 0.1 X10e3 (0-0.7); EOSINOPHIL% 1.7 % (0.0-7.0); HEMATOCRIT 26.9 % (38.0-50.0); LYMPHOCYTE% 15.2 % (17.0-45.0); MEAN CELL VOLUME 89.1 FL (83-96); MEAN CORPUSCULAR HEMOGLOBIN 29.1 PG (28-34); MEAN CORPUSCULAR HGB CONC 32.6 g/dL (30-36); MEAN PLATELET VOLUME 7.1 FL (6.5-11.5); NEUTROPHIL# 4.7 X10e3 (1.5-7.1); NEUTROPHIL% 67.6 % (40-75); PLATELET COUNT 303 X10e3 (140-420); RED BLOOD COUNT 3.02 X10e (3.90-5.60); RED CELL DISTRIBUTION WIDTH 15.6 % (11.0-15.5); WHITE BLOOD COUNT 6.9 X10e3 (4.0-10.5)
[2017-05-08 02:43] LABS: DIFF IND NO; HEMOGLOBIN 8.8 gm/dL (13.0-16.0)
[2017-05-08 03:11] LABS: BUN/CREATININE RATIO 13.33; CALCIUM SERUM 8.4 mg/dL (8.4-10.2); CREATININE SERUM 0.9 mg/dL (0.6-1.4); GLOM FILT RATE Estimated 108.7 mL/min (>60); POTASSIUM 4.2 mmol/L (3.5-5.1)
[2017-05-09 03:47] LABS: BASOPHIL% 0.6 % (0-2.5); DIFF IND YES; EOSINOPHIL# 0.1 X10e3 (0-0.7); EOSINOPHIL% 3.2 % (0.0-7.0); HEMATOCRIT 24.1 % (38.0-50.0); HEMOGLOBIN 7.7 gm/dL (13.0-16.0); LYMPHOCYTE% 22.9 % (17.0-45.0); MEAN CELL VOLUME 89.9 FL (83-96); MEAN CORPUSCULAR HEMOGLOBIN 28.9 PG (28-34); MEAN CORPUSCULAR HGB CONC 32.1 g/dL (30-36); MEAN PLATELET VOLUME 7.1 FL (6.5-11.5); MONOCYTE# 0.7 X10e3 (0-1.0); MONOCYTE% 14.4 % (3.0-12.0); NEUTROPHIL# 2.7 X10e3 (1.5-7.1); NEUTROPHIL% 58.9 % (40-75); PLATELET COUNT 288 X10e3 (140-420); RED BLOOD COUNT 2.68 X10e (3.90-5.60); RED CELL DISTRIBUTION WIDTH 15.9 % (11.0-15.5); WHITE BLOOD COUNT 4.6 X10e3 (4.0-10.5)
[2017-05-09 03:57] LABS: CALCIUM SERUM 8.5 mg/dL (8.4-10.2); GLOM FILT RATE Estimated 95.7 mL/min (>60); POTASSIUM 4.6 mmol/L (3.5-5.1)
[2017-05-09 04:25] LABS: PLATELET ESTIMATE NORMAL (NORMAL)
[2017-05-09 04:27] LABS: ANISOCYTOSIS SL; HYPOCHROMIA SL
[2017-05-09 04:28] LABS: POIKILOCYTOSIS SL
[2017-05-09 12:23] LABS: HEMATOCRIT 28.2 % (38.0-50.0)
[2017-05-10 04:00] LABS: HEMATOCRIT 26.5 % (38.0-50.0); HEMOGLOBIN 8.5 gm/dL (13.0-16.0); MEAN CELL VOLUME 90.5 FL (83-96); MEAN CORPUSCULAR HEMOGLOBIN 29.1 PG (28-34); MEAN CORPUSCULAR HGB CONC 32.2 g/dL (30-36); MEAN PLATELET VOLUME 6.6 FL (6.5-11.5); RED BLOOD COUNT 2.92 X10e (3.90-5.60); RED CELL DISTRIBUTION WIDTH 15.6 % (11.0-15.5); WHITE BLOOD COUNT 5.8 X10e3 (4.0-10.5)
[2017-05-11 03:32] LABS: HEMATOCRIT 25.5 % (38.0-50.0); HEMOGLOBIN 8.3 gm/dL (13.0-16.0); MEAN CORPUSCULAR HEMOGLOBIN 29.7 PG (28-34); MEAN CORPUSCULAR HGB CONC 32.6 g/dL (30-36); MEAN PLATELET VOLUME 7.4 FL (6.5-11.5); RED BLOOD COUNT 2.8 X10e (3.90-5.60); RED CELL DISTRIBUTION WIDTH 15.9 % (11.0-15.5); WHITE BLOOD COUNT 5.2 X10e3 (4.0-10.5)
[2017-05-11 04:06] LABS: BUN/CREATININE RATIO 22.22; CALCIUM SERUM 8.6 mg/dL (8.4-10.2); CREATININE SERUM 0.9 mg/dL (0.6-1.4); GLOM FILT RATE Estimated 108.7 mL/min (>60); POTASSIUM 4.8 mmol/L (3.5-5.1)
[2017-05-12 02:23] LABS: BASOPHIL% 0.5 % (0-2.5); EOSINOPHIL# 0.2 X10e3 (0-0.7); EOSINOPHIL% 4.2 % (0.0-7.0); HEMATOCRIT 24.6 % (38.0-50.0); LYMPHOCYTE# 0.8 X10e3 (1.0-3.5); LYMPHOCYTE% 15.1 % (17.0-45.0); MEAN CORPUSCULAR HEMOGLOBIN 29.2 PG (28-34); MEAN CORPUSCULAR HGB CONC 32.4 g/dL (30-36); MONOCYTE# 0.7 X10e3 (0-1.0); MONOCYTE% 12.9 % (3.0-12.0); NEUTROPHIL# 3.7 X10e3 (1.5-7.1); NEUTROPHIL% 67.3 % (40-75); PLATELET COUNT 298 X10e3 (140-420); RED BLOOD COUNT 2.73 X10e (3.90-5.60); RED CELL DISTRIBUTION WIDTH 15.9 % (11.0-15.5); WHITE BLOOD COUNT 5.5 X10e3 (4.0-10.5)
[2017-05-12 02:24] LABS: DIFF IND NO
[2017-05-12 02:51] LABS: CALCIUM SERUM 8.6 mg/dL (8.4-10.2); CREATININE SERUM 0.9 mg/dL (0.6-1.4); GLOM FILT RATE Estimated 108.7 mL/min (>60); MAGNESIUM 1.9 mg/dL (1.6-3.0); POTASSIUM 4.4 mmol/L (3.5-5.1)
[2017-06-23] MEDS ORDERED: TRIAMTERENE-HC1 EAC1 PO (10:31)
[2017-06-23] MEDS ORDERED: AMLODIPINE BESY10 MG PO (10:31)
[2017-06-23] MEDS ORDERED: PERCOCET 5/321 UDTAB PO (14:44)
== END 2017-05-12 19:10 | DRG 902 ==
LOC: C4C 10:57
PROVIDERS: Internal Medicine; Nurse Practitioner; Nurse Practitioner Family; Orthopaedic Surgery
PROC: 2W1LX6Z Compression of Right Lower Extremity using Pressure Dressing (ICD-10-PCS; 2017-05-07)
PROC: 0JBN0ZZ Excision of Right Lower Leg Subcutaneous Tissue and Fascia, Open Approach (ICD-10-PCS; principal; 2017-05-07 15:30)
PROC: 30233N1 Transfusion of Nonautologous Red Blood Cells into Peripheral Vein, Percutaneous Approach (ICD-10-PCS; 2017-05-09)
PROC: 02HV33Z Insertion of Infusion Device into Superior Vena Cava, Percutaneous Approach (ICD-10-PCS; 2017-05-11)
PROC: B518YZA Fluoroscopy of Superior Vena Cava using Other Contrast, Guidance (ICD-10-PCS; 2017-05-11)
PROC: B548ZZA Ultrasonography of Superior Vena Cava, Guidance (ICD-10-PCS; 2017-05-11)
DX: T81.32XA Disruption of internal operation (surgical) wound, not elsewhere classified, initial encounter (principal); D62 Acute posthemorrhagic anemia; I10 Essential (primary) hypertension; F17.210 Nicotine dependence, cigarettes, uncomplicated; Z86.73 Personal history of transient ischemic attack (TIA), and cerebral infarction without residual deficits; I73.9 Peripheral vascular disease, unspecified; E78.00 Pure hypercholesterolemia, unspecified; Z88.0 Allergy status to penicillin; F10.20 Alcohol dependence, uncomplicated; B96.89 Other specified bacterial agents as the cause of diseases classified elsewhere
CPT/HCPCS: 76937; 77001; 80048; 80202; 83735; 85014; 85018; 85025; 85027; 85610; 85652; 86140; 86850; 86900; 86901; 86923; 87070; 87075; 87077; 87186; 87205; 94760; C1751; J1642; J2250; J2270; J2370; J2405; J3010; J3370; P9016

== ENCOUNTER → 2017-06-23 | Day surgery (SDC) | payer MEDICARE, OTHER ==
[~2017-06-23] MED LIST changes: +AMLODIPINE BESY10 MG PO; +PERCOCET 5/321 UDTAB PO; +TRIAMTERENE-HC1 EAC1 PO
--- NOTE | ~2017-06-23 | OR ---
Unit #: [id number] #: [id number] Patient: FRANCI MALDONADO [id number] [address] [place], [place] [address] [id number] MR#: [id number] NAME: RFANCI MALDONADO. ROOM: Date of Procedure: 06/23/2017 Admission Date: 06/23/2017 Surgeon: Chevy Tejeda M.D. : 1960 Attending Physician: Chevy Tejeda M.D. Primary Care Physician: Generic Doctor Not In System OPERATIVE REPORT PREOPERATIVE DIAGNOSIS Right anterior and medial distal leg wounds. POSTOPERATIVE DIAGNOSIS Right anterior and medial distal leg wounds. PROCEDURE PERFORMED Right anterior and medial distal leg wounds split thickness skin graft with anterior right thigh donor site (54 square cm) (22366). ASSISTANTS Rey and Jacqueline. ANESTHESIA General. INDICATIONS FOR SURGERY The patient is a 56-year-old male, who underwent distal tibial and fibular osteotomies for a malunion and nonunion of fractures on 04/07/2017. He developed a wound dehiscence and underwent wound debridement on 05/07/2017. The patient now has undergone granulation of his wounds and is ready for split-thickness skin grafting. DESCRIPTION OF PROCEDURE The patient was taken to the operating room and placed in supine position. General anesthetic was induced. The right leg was identified as the correct operative extremity during the time-out procedure. The IV antibiotic protocol was followed. The right leg was then prepped and draped in usual sterile fashion. The dermatome was then used to harvest a 15,000 of an inch graft from the anterior thigh. This graft measured about 8 x 8 cm. This was then placed through the mesher and applied to the anterior wound. The anterior wound measured 7 cm x 7 cm. It was abraded with a sponge and all fibrinous material was removed. There was some cloudy fluid which was obtained deep to the granulation tissue and this was cultured for aerobic and anaerobic bacteria. The graft was then applied and stapled into place. The graft excess was then cut and then stapled into place over a medial distal wound which measured 2 x 3 cm. Xeroform gauze was then placed over each wound. Sterile cotton balls soaked in mineral oil were then placed over the Xeroform. Dressing and sponges were placed. A Kerlix cast padding and a posterior fiberglass splint were then applied with two Srinivasan wraps. Unit #: [id number] #: [id number] Patient: FRANCI MALDONADO The anterior leg wound was first dressed with epinephrine-soaked gauze. This was then removed after bleeding was controlled, and a Tegaderm was placed over the anterior thigh wound. The patient was then awakened in the operating room and transported to the recovery room in stable condition. ESTIMATED BLOOD LOSS Minimal. COMPLICATIONS None. SPECIMENS Cultures of the right anterior leg wound. TOURNIQUET TIME Zero. Dictated by.Dominguez Robles/jose TD: 06/24/2017 14:17 JOB #: [id number] OPERATIVE REPORT Page 1 of 1 X Christina Tejeda MD X PROCEDURE OPERATIVE NOTE
--- NOTE | ~2017-06-23 | HP ---
Unit #: [id number] #: [id number] Patient: FRANCI MALDONADO [id number] [address] [address] [id number] MR#: [id number] NAME: FRANCI MALDONADO. ROOM: Age: 56 Sex: M Admission Date: 06/23/2017 : 1960 Attending Physician: Chevy Tejeda M.D. Primary Care Physician: Generic Doctor Not In System HISTORY AND PHYSICAL CHIEF COMPLAINT Right leg wounds. HISTORY OF PRESENT ILLNESS The patient is a 56-year-old male who sustained right distal tibial and fibular fractures greater than a year ago which went on to nonunion and malunion. The patient underwent right distal tibial and fibular osteotomies on April 07, 2017, approximately ten weeks ago. The patient's postoperative course was complicated by wound dehiscence and infection. The patient, therefore, returned to the operating room on May 07, 2017, six weeks ago, for debridement of the wound and placement of a wound Vac. The patient has now completed a six week course of IV antibiotics and his wound has healed insufficiently to allow split thickness skin grafting. PAST MEDICAL HISTORY Remarkable for: 1. Tobacco abuse. 2. Hypertension. 3. Hypercholesterolemia. PAST SURGICAL HISTORY 1. Right nephrectomy. 2. Carotid endarterectomy. 3. Right distal tibial and fibular shaft osteotomies. 4. Right leg wound debridement. HOME MEDICATIONS 1. Amlodipine. 2. Triamterene/hydrochlorothiazide. ALLERGIES Penicillin. SOCIAL HISTORY The patient drinks alcohol socially. He smokes one pack per day. He works on a farm. FAMILY HISTORY Heart disease, hypertension, stroke. REVIEW OF SYSTEMS Otherwise unremarkable. PHYSICAL EXAMINATION Unit #: [id number] #: [id number] Patient: FRANCI MALDONADO GENERAL: This is a thin male in no acute distress. Height 5 foot 10, weight 157 pounds. PHARYNX: Clear. NECK: Supple without masses. HEART EXAM: Reveals a regular sinus rhythm without murmurs or gallops. LUNGS: Clear. ABDOMEN: Soft and nontender without masses or organomegaly. Evaluation of the right leg shows moderate swelling. The patient has an 8 cm diameter wound in the anterior aspect of the distal tibia with healthy appearing granulation tissue. There is a medial wound in the distal tibia measuring 2 x 3 cm. Pulses are intact. Sensation is intact. Alignment satisfactory. AP and lateral views of the right leg show distal tibial and fibular plates intact with ongoing bony healing of the osteotomies. ADMITTING DIAGNOSIS Right anterior medial distal tibial leg wounds. PLAN The patient has is admitted for split thickness skin grafting. Donor site will be from the anterior thigh. The risks of the procedure were discussed to include bleeding, infection, failure of the graft to completely heal, prolonged recovery time, deep venous thrombosis, pulmonary embolism, anesthetic complications. He understands the above risks and agrees to proceed with the treatment plan. Dictated by Dominguez Kovacs/jordyn TD: 06/23/2017 06:16 JOB #: [id number] HISTORY AND PHYSICAL Page 1 of 1 X Christina Tejeda MD X HISTORY AND PHYSICAL
[2017-06-23 14:40] LABS: BUN/CREATININE RATIO 7.5; CREATININE SERUM 0.8 mg/dL (0.6-1.4); GLOM FILT RATE Estimated 114.2 mL/min (>60); POTASSIUM 3.9 mmol/L (3.5-5.1)
== END | disposition home or self-care (01) ==
LOC: CSUR 12:15 → CPACUOF 17:05 → CSUR 17:05
PROVIDERS: Orthopaedic Surgery
DX: S91.001A Unspecified open wound, right ankle, initial encounter (principal); L92.8 Other granulomatous disorders of the skin and subcutaneous tissue; I10 Essential (primary) hypertension; F17.210 Nicotine dependence, cigarettes, uncomplicated; E78.00 Pure hypercholesterolemia, unspecified; Z88.0 Allergy status to penicillin; Z79.899 Other long term (current) drug therapy; Z90.49 Acquired absence of other specified parts of digestive tract; Z98.890 Other specified postprocedural states; Z90.5 Acquired absence of kidney; X58.XXXA Exposure to other specified factors, initial encounter
CPT/HCPCS: 80048; 87070; 87075; 87077; 87186; 87205; J0171; J2250; J2405; J3010; J3370